=== PATIENT | female | born 1995 ===

== ENCOUNTER 2018-08-06 13:15 | Emergency (ER) | payer OTHER ==
[2018-08-06 13:22] VITALS: TEMP 98.4
[2018-08-06] MEDS ORDERED: Sodium Chloride 0.9% 1,000 ML IV ONE (13:58)
[2018-08-06] MEDS ORDERED: Sodium Chloride 0.9% 250 ML IV ONE (14:08)
[2018-08-06 14:23] LABS: BASO % 0.2 % (0.0-2.0); EOS # 0.1 K/uL (0.0-0.7); EOS % 1.1 % (0.0-4.0); HEMOGLOBIN 13.7 g/dL (11.0-16.0); LYMPH # 3.3 K/uL (1.0-4.3); LYMPH % 31.7 % (20.0-40.0); MEAN CELL VOLUME 83.4 fL (81.0-99.0); MEAN CORPUSCULAR HEMOGLOBIN 28.2 pg (27.0-31.0); MEAN CORPUSCULAR HGB CONC 33.8 g/dL (33.0-37.0); MEAN PLATELET VOLUME 8.6 fL (7.2-11.7); MONO # 0.5 K/uL (0.0-0.8); MONO % 5.2 % (0.0-10.0); NEUT # 6.4 K/uL (1.8-7.0); NEUT % 61.8 % (50.0-75.0); RBC 4.86 Mil/uL (3.80-5.20); RED CELL DISTRIBUTION WIDTH 13.7 % (11.5-14.5); WHITE BLOOD COUNT 10.4 K/uL (4.8-10.8)
--- NOTE | 2018-08-06 14:29 | C.PDOC ---
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 Pain is described as constant and non-radiating, worsens with movement. She notes she cannot get comfortable due to the pain. Pain is associated with nausea and 1 episode of vomiting today. 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 Of note, she reports recently her doctor started her on an oral contraceptive due to her irregular periods and being overweight. LMP was in May 2018. Otherwise patient denies any fever, chills, diarrhea, or urinary symptoms. Patient states she has never had this pain in the past. She did not take any medication for pain relief prior to arrival. In contrast to triage note, patient denies any SOB. She states that sometimes she feels anxious and it feels hard to catch her breath. Otherwise she denies any chest pain, dizziness, or other complaints. Time Seen by Provider: 08/06/18 13:28 Chief Complaint (Nursing): Abdominal Pain History Per: Patient History/Exam Limitations: no limitations Onset/Duration Of Symptoms: Hrs Current Symptoms Are (Timing): Still Present Location Of Pain/Discomfort: RLQ Quality Of Discomfort: Sharp Associated Symptoms: Nausea, Vomiting Alleviating Factors: None Past Medical History Reviewed: Historical Data, Nursing Documentation, Vital Signs Vital Signs: Last Vital Signs Temp 98.4 F 08/06/18 13:20 Pulse 77 08/06/18 13:20 Resp 20 08/06/18 13:20 BP 117/80 08/06/18 13:20 Pulse Ox 100 08/06/18 13:20 - Medical History PMH: No Chronic Diseases Surgical History: No Surg Hx Family History: States: Unknown Family Hx - Social History Hx Tobacco Use: No Hx Alcohol Use: No Hx Substance Use: No - Immunization History Hx Tetanus Toxoid Vaccination: No Hx Influenza Vaccination: No Hx Pneumococcal Vaccination: No Review Of Systems Constitutional: Negative for: Fever, Chills Cardiovascular: Negative for: Chest Pain Respiratory: Negative for: Shortness of Breath Gastrointestinal: Positive for: Nausea, Vomiting, Abdominal Pain (RLQ). Negative for: Diarrhea, Constipation Genitourinary: Negative for: Dysuria, Frequency, Incontinence Musculoskeletal: Negative for: Back Pain Neurological: Negative for: Weakness, Numbness Physical Exam - Physical Exam Appears: Non-toxic, No Acute Distress Skin: Warm, Dry Head: Atraumatic, Normacephalic Eye(s): bilateral: Normal Inspection, PERRL, EOMI Oral Mucosa: Moist Neck: Normal ROM Chest: Symmetrical Cardiovascular: Rhythm Regular, No Murmur Respiratory: Normal Breath Sounds, No Accessory Muscle Use Gastrointestinal/Abdominal: Soft, Tenderness (to the RLQ, (+) Rovsings sign), No Guarding, No Rebound, Other (Obese abdomen) Back: Normal Inspection, No CVA Tenderness Extremity: Bilateral: Atraumatic, Normal Color And Temperature, Normal ROM (x 4) Pulses: Left Dorsalis Pedis: Normal, Right Dorsalis Pedis: Normal Neurological/Psych: Oriented x3 Gait: Steady ED Course And Treatment - Laboratory Results Result Diagrams: 08/06/18 14:18 08/06/18 14:18 Urine POC: Negative O2 Sat by Pulse Oximetry: 100 (RA) Pulse Ox Interpretation: Normal - CT Scan/US Pelvic US Other Rad Studies (CT/US): Read By Radiologist, Radiology Report Reviewed CT/US Interpretation: Accession No. : [id number]. Patient Name / ID : WILD FUNES / [id number]. Exam Date : 08/06/2018 15:47:45 ( Approved ). Study Comment : Sex / Age : F / 22Y. Creator : Danay Kim MD. Dictator : Danay Kim MD. Color Expert : Stonecutter Assistant : Danay Kim MD. Approver2 : Report Date : 08/06/2018 17:20:55. My Comment : . Date of service: 08/06/2018. HISTORY: rLq pain. COMPARISON: None available. TECHNIQUE: Real-time transabdominal pelvic ultrasound was performed. In addition a transvaginal pelvic ultrasound was necessary to better depict pelvic anatomy. FINDINGS: UTERUS: Measures 6.7 x 2.6 x 4.0 cm. Anteverted. ENDOMETRIUM: Measures 4 mm in diameter. CERVIX: No cervical abnormality identified. RIGHT OVARY: Measures 7.9 x 4.6 x 7.4 cm. Blood flow is demonstrated. 3.2 x 2.8 x 3.5 cm septated cyst. 4.9 x 4.6 x 7.2 cm complex echogenic mass, indeterminate. LEFT OVARY: Measures 2.8 x 2.3 x 2.3 cm. Blood flow is demonstrated. FREE FLUID: Small pelvic free fluid. OTHER FINDINGS: None. IMPRESSION: 3.2 x 2.8 x 3.5 cm septated right ovarian cyst. Recommend 6 week ultrasound follow-up to assess for resolution. 4.9 x 4.6 x 7.2 cm indeterminate complex right ovarian mass, possibly dermoid. Cross-sectional imaging may be considered for further ch aracterization. Medical Decision Making Medical Decision Making: Impression: 22 y/o with RLQ pain Plan: --CMP, CBC, lipase --UA, urine HCG --30 mg IV Toradol --4 mg IV Zofran --IV fluids 15:00 On re-evaluation, patient appears more comfortable and is resting comfortably on stretcher. States she is concerned about possible abnormality with her ovary. Will obtain Transvag/Pelvic US 17:45 On re-evaluation patient reports feeling better after Toradol given. Discussed results of US with patient. Recommendation for non-emergent outpatient CT or MRI discussed in detail. 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 Provided instruction hand-out and referral women's health clinic. Disposition Counseled Patient/Family Regarding: Studies Performed, Diagnosis, Need For Followup - Disposition Referrals: [facility] [Outside] [facility] [Outside] [facility] [Outside] Disposition: HOME/ ROUTINE Disposition Time: 17:46 Condition: IMPROVED Additional Instructions: SHANTEL ROME thank you for letting us take care of you today. Your provider was Ratna Tcuker MD and you were treated for NAUSEA/ABD PAINS. The emergency medical care you received today was directed at your acute symptoms. If you were prescribed any medication, please fill it and take as directed. It may take several days for your symptoms to resolve. Return to the Emergency Department if your symptoms worsen, do not improve, or if you have any other problems. Please contact your doctor or call one of the physicians/clinics you have been referred to that are listed on the Patient Visit Information form that is included in your discharge packet. You need to have a Cat scan or MRI of your abdomen to further evaluate the ovarian mass and cyst found on ultrasound today. Call for a follow up appointment in 1-2 days. Bring any paperwork you were given at discharge with you along with any medications you are taking to your follow up visit. Our treatment cannot replace ongoing medical care by a primary care provider outside of the emergency department. Thank you for allowing the [facility] team to be part of your care today Prescriptions: Naproxen [Naprosyn] 500 mg PO BID PRN #30 tablet PRN Reason: Pain, Moderate (4-7) Instructions: Acute Abdomen (Belly Pain), Adult (DC), Ovarian Cyst (DC) Forms: pic5 (Moroccan), General Discharge Instructions - POA Present On Arrival: None - Clinical Impression Clinical Impression: Dermoid cyst of ovary, Ovarian cyst, Abdominal pain - Scribe Statement The provider has reviewed the documentation as recorded by the Tammie Suarez Provider Attestation: All medical record entries made by the Tammie were at my direction and personally dictated by me. I have reviewed the chart and agree that the record accurately reflects my personal performance of the history, physical exam, medical decision making, and the department course for this patient. I have also personally directed, reviewed, and agree with the discharge instructions and disposition.
[2018-08-06 14:33] LABS: HCG,QUALITATIVE URINE NEGATIVE (NEGATIVE)
[2018-08-06 14:38] LABS: SQUAMOUS EPITHIAL 8 /hpf (0-5); URINE BILIRUBIN NEGATIVE (NEGATIVE); URINE BLOOD NEGATIVE (NEGATIVE); URINE CLARITY Clear (Clear); URINE COLOR Yellow (YELLOW); URINE GLUCOSE (UA) NORMAL (Normal); URINE LEUKOCYTE ESTERASE NEG Leu/uL (Negative); URINE PROTEIN NEGATIVE (NEGATIVE); URINE UROBILINOGEN NORMAL mg/dL (0.2-1.0)
[2018-08-06 14:52] LABS: ALB/GLOB RATIO 1.5 (1.0-2.1); ALBUMIN 4.4 g/dL (3.5-5.0); ALT/SGPT 105 U/L (9-52); AST/SGOT 45 U/L (14-36); BLOOD UREA NITROGEN 18 mg/dL (7-17); GFR NON-AFRICAN AMERICAN > 60; LIPASE 25 U/L (23-300)
--- NOTE | 2018-08-06 17:24 | US ---
Date of service: 08/06/2018 HISTORY: rLq pain COMPARISON: None available. TECHNIQUE: Real-time transabdominal pelvic ultrasound was performed. In addition a transvaginal pelvic ultrasound was necessary to better depict pelvic anatomy. FINDINGS: UTERUS: Measures 6.7 x 2.6 x 4.0 cm. Anteverted. ENDOMETRIUM: Measures 4 mm in diameter. CERVIX: No cervical abnormality identified. RIGHT OVARY: Measures 7.9 x 4.6 x 7.4 cm. Blood flow is demonstrated. 3.2 x 2.8 x 3.5 cm septated cyst. 4.9 x 4.6 x 7.2 cm complex echogenic mass, indeterminate. LEFT OVARY: Measures 2.8 x 2.3 x 2.3 cm. Blood flow is demonstrated. FREE FLUID: Small pelvic free fluid. OTHER FINDINGS: None. IMPRESSION: 3.2 x 2.8 x 3.5 cm septated right ovarian cyst. Recommend 6 week ultrasound follow-up to assess for resolution. 4.9 x 4.6 x 7.2 cm indeterminate complex right ovarian mass, possibly dermoid. Cross-sectional imaging may be considered for further characterization.
[2018-08-06 17:55] VITALS: BP 155/72; PULSE 80; RESP 16; O2SAT 99
== END 2018-08-06 17:55 | disposition home or self-care (01) ==
LOC: C.ER 13:15
DX: R10.31 Right lower quadrant pain (principal); D27.0 Benign neoplasm of right ovary
CPT/HCPCS: 76830; 76856; 80053; 81001; 83690; 84703; 85025; 96361; 96374; 96375; 99285; J1885; J2405; J7030